=== PATIENT | male | born 1970 | race Caucasian/White ===

== ENCOUNTER 2018-07-16 20:12 | Inpatient (IN) | payer OTHER ==
--- NOTE | 2018-07-17 01:37 | HP ---
COWS - Scale Resting Pulse: 1= [place] 81-100 Sweatin=Flushed/Facial Moisture Restless Observation: 5= Unable to Sit Still Pupil Size: 0= Normal to Room Light Bone or Joint Aches: 4=Acute Joint/Muscle Pain Runny Nose/ Eye Tearin= Nasal Congestion GI Upset > 30mins: 1= Stomach Cramp Tremor Observation: 0= None Yawning Observation: 0= None Anxiety or Irritability: 2=Irritable/Anxious Goose Flesh Skin: 0=Smooth Skin COWS Score: 16 CIWA Score Nausea/Vomitin Muscle Tremors: None Anxiety: 4-Mod. Anxious/Guarded Agitation: 4-Moderately Restless Paroxysmal Sweats: 3 Orientation: 0-Oriented Tacttile Disturbances: 2-Mild Itch/Numbness/Burn Auditory Disturbances: 0-None Visual Disturbances: 3-Moderate Sensitivity Headache: 3-Moderate CIWA-Ar Total Score: 22 - Admission Criteria [facility]ASAS Guidelines: Admission for Medically Managed Detox: Requires at least one of the followin. CIWA greater than 12 2. Seizures within the past 24 hours 3. Delirium tremens within the past 24 hours 4. Hallucinations within the past 24 hours 5. Acute intervention needed for co occurring medical disorder 6. Acute intervention needed for co occurring psychiatric disorder 7. Severe withdrawal that cannot be handled at a lower level of care (continued vomiting, continued diarrhea, abnormal vital signs) requiring intravenous medication and/or fluids 8. Patient presents the following: CIWA greater than 12 Admission Criteria Met: Admission criteria met Admission [facility] Chief Complaint: c/o worsening withdrawal sx's. seeking detox txment. Allergies/Adverse Reactions: Allergies Allergy/AdvReac Type Severity Reaction Status Date / Time fish derived Allergy Verified 07/16/18 23:29 ibuprofen AdvReac Intermediate Rash Verified 07/16/18 23:29 History of Present Illness: 48 Y.O. MALE WITH HX/O ALCOHOLISM AND HEROIN ABUSE HERE FOR DETOX. CLIENT IS SELF REFERRED. HE IS KNOWN TO OUR OUTPATIENT PROGRAM. HE REPORTS DRINKING ALCOHOL DAILY AND HIS LAST USE OF HEROIN 3 DAYS AGO. UTOX + THC, IMELDA. CIWA 22. REPORTS LONGEST CLEAN TIME 11 YEARS, DENIES ANY RECENT CLEAN TIME. REPORTS HX/O SEIZURES R/T XANAX WITHDRAWAL. REPORTS HAS NOT TAKEN ANY XANAX IN MONTHS. DENIES SI/AVH. HX/O HI BUT PRESENTLY DENIES. Exam Limitations: No Limitations - Ebola screening Have you traveled outside of the country in the last 21 days: No Have you had contact with anyone from an Ebola affected area: No Do you have a fever: No - Review of Systems Constitutional: Chills, Loss of Appetite, Malaise, Night Sweats, Changes in sleep, Unintentional Wgt. Loss EENT: reports: Nose Congestion, Dental Problems (MISSING TEETH) Respiratory: reports: Other (HX/O ASTHMA/COPD) Cardiac: reports: No Symptoms Reported GI: reports: Constipated, Nausea, Poor Appetite, Vomiting, Abdominal cramping : reports: No Symptoms Reported Musculoskeletal: reports: Back Pain Integumentary: reports: Other (GENTIAL WART) Neuro: reports: Numbness, Other (SCIATICA) Endocrine: reports: No Symptoms Reported Hematology: reports: No Symptoms Reported Psychiatric: reports: Orientated x3, Anxious, Depressed Other Systems: Reviewed and Negative Patient History - Patient Medical History Hx Anemia: No Hx Asthma: Yes Hx Chronic Obstructive Pulmonary Disease (COPD): Yes Hx Cancer: No Hx Cardiac Disorders: No Hx Congestive Heart Failure: No Hx Hypertension: Yes Hx Hypercholesterolemia: No Hx Pacemaker: No HX Cerebrovascular Accident: No Hx Seizures: Yes Hx Dementia: No Hx Diabetes: No Hx Gastrointestinal Disorders: Yes (ACID REFLUX) Hx Liver Disease: No Hx Genitourinary Disorders: No Hx Sexually Transmitted Disorders: Yes (GENITAL WART) Hx Renal Disease (ESRD): No Hx Thyroid Disease: No Hx Human Immunodeficiency Virus (HIV): No Hx Hepatitis C: No Hx Depression: Yes Hx Suicide Attempt: No Hx Bipolar Disorder: Yes Hx Schizophrenia: No - Patient Surgical History Past Surgical History: No Anesthesia Reaction: No - PPD History Previous Implant?: Yes Documented Results: Negative w/o proof Implanted On Prior [facility] Admission?: Yes PPD to be Administered?: Yes - Smoking Cessation Smoking history: Current every day smoker Have you smoked in the past 12 months: Yes Aproximately how many cigarettes per day: 10 Hx Chewing Tobacco Use: No Initiated information on smoking cessation: Yes 'Breaking Loose' booklet given: 07/17/18 - Substance & Tx. History Hx Alcohol Use: Yes Hx Substance Use: Yes Substance Use Type: Alcohol - Substances abused Heroin Other (specify): sniff Frequency: Daily Amount used: 3 bags Age of first use: 8 Date of last use: 07/14/18 Alcohol Substance route: Oral Frequency: Daily Amount used: 2/5th Age of first use: 12 Date of last use: 07/14/18 Family Disease History - Family Disease History Family Disease History: Other: Son (CANNABIS), Daughter (CANNABIS) Admission Physical Exam [facility] - Vital Signs Vital Signs: Vital Signs - 24 hr 07/16/18 23:30 Pulse Rate 82 Respiratory 20 Rate Blood Pressure 137/79 - Physical General Appearance: Yes: Appropriately Dressed, Irritable, Anxious HEENTM: Yes: EOMI, Normocephalic, Normal Voice, RIC, Pharynx Normal, Other ( POOR DENTITION) Respiratory: Yes: Chest Non-Tender, Lungs Clear, Normal Breath Sounds, Decreased Breath Sounds, No Respiratory Distress Neck: Yes: No masses,lesions,Nodules, Supple, Trachea in good position Breast: Yes: Breast Exam Deferred Cardiology: Yes: Regular Rhythm, Regular Rate, S1, S2 Abdominal: Yes: Normal Bowel Sounds, Non Tender, Soft Genitourinary: Yes: Within Normal Limits Back: Yes: Normal Inspection Musculoskeletal: Yes: full range of Motion, Gait Steady Extremities: Yes: Normal Capillary Refill, Normal Range of Motion, Non-Tender Neurological: Yes: Fully Oriented, Alert Integumentary: Yes: Dry, Warm Lymphatic: Yes: Within Normal Limits - Diagnostic (1) Alcohol dependence with uncomplicated withdrawal Current Visit: Yes Status: Acute (2) COPD - Chronic obstructive lung disease Current Visit: Yes Status: Chronic (3) Degenerative disc disease Current Visit: Yes Status: Chronic (4) Low back pain Current Visit: Yes Status: Chronic (5) hypertension Current Visit: Yes Status: Chronic (6) Cannabis dependence Current Visit: Yes Status: Acute (7) Cocaine dependence Current Visit: Yes Status: Acute (8) Nicotine dependence Current Visit: No Status: Acute Cleared for Admission [facility] - Detox or Rehab [facility] Level of Care: Medically Managed Detox Regimen/Protocol: Librium Claeared for Rehab Admission: No Breathalyzer - Breathalyzer Breathalyzer: 0 Urine Drug Screen - Test Device Lot number: [id number] Expiration date: 03/15/20 - Control Is test valid?: Yes - Results Drug screen NEGATIVE: No Urine drug screen results: THC-Marijuana, IMELDA-Cocaine Inpatient Rehab Admission - Rehab Decision to Admit Inpatient rehab admission?: No
[2018-07-17] MEDS ORDERED: MAGNESIUM HYDROX 2400MG/30ML ORAL SUSPENSION 30 ML CUP PO PRN (01:44)
[2018-07-17] MEDS ORDERED: P-EPHED 60MG/TRIPROLIDI 2.5MG TABLET PO PRN (01:44)
[2018-07-17] MEDS ORDERED: MAGNESIUM CITRATE 300 ML BOTTLE PO PRN (01:44)
[2018-07-17] MEDS ORDERED: NICOTINE POLACRILEX 2 MG GUM BUC PRN (01:44)
[2018-07-17] MEDS ORDERED: chlordiazePOXIDE HCL 25 MG CAPSULE PO ONE (01:44)
[2018-07-17] MEDS ORDERED: BISMUTH SUBSALICYLATE 524 MG/30 ML UD PO PRN (01:44)
[2018-07-17] MEDS ORDERED: ONDANSETRON *ODT* 4 MG TABLET SL PRN (01:44)
[2018-07-17] MEDS ORDERED: MENTHOL/PHENOL 1 EACH UD MM PRN (01:44)
[2018-07-17] MEDS ORDERED: chlordiazePOXIDE HCL 25 MG CAPSULE PO PRN (01:44)
[2018-07-17] MEDS ORDERED: hydrOXYzine PAMOATE 25 MG CAPSULE (FP) PO PRN (01:44)
[2018-07-17] MEDS ORDERED: MELATONIN 5 MG TABLETS PO PRN (01:44)
[2018-07-17] MEDS ORDERED: ACETAMINOPHEN 325 MG TABLET (FP) PO PRN (01:44)
[2018-07-17] MEDS ORDERED: METHOCARBAMOL 500 MG TABLET PO PRN (01:44)
[2018-07-17] MEDS ORDERED: DICYCLOMINE HCL 10 MG CAPSULE PO PRN (01:44)
[2018-07-17] MEDS ORDERED: guaiFENesin 200 MG/10 ML 10 ML UNIT-DOSE CUPS PO PRN (01:44)
[2018-07-17] MEDS ORDERED: IBUPROFEN 400 MG TABLET (FP) PO PRN (01:44)
[2018-07-17] MEDS ORDERED: ALBUTEROL SO4 0.083% IH SOL 2.5 MG/3 ML VIAL.NEB. NEB PRN (01:56)
[2018-07-17] MEDS: ACETAMINOPHEN 325 MG TABLET (FP) PO PRN (03:14)
[2018-07-17] MEDS: chlordiazePOXIDE HCL 25 MG CAPSULE PO SCH ×4 (06:54→22:19)
--- NOTE | 2018-07-17 09:49 | EKG ---
Test Reason : Blood Pressure : / mmHG Vent. Rate : 069 BPM Atrial Rate : 069 BPM P-R Int : 162 ms QRS Dur : 112 ms QT Int : 422 ms P-R-T Axes : 064 068 052 degrees QTc Int : 452 ms NORMAL SINUS RHYTHM NORMAL ECG NO PREVIOUS ECGS AVAILABLE Confirmed by KRISTIN SANCHEZ, CHERELLE ([id number]) on 07/17/2018 9:49:41 AM Referred By: LAMONTE Confirmed By:CHERELLE FOSTER MD
[2018-07-17] MEDS: PRENATAL VITAMINS W/ FOLIC ACID TABLET (FP) PO SCH (10:22)
[2018-07-17] MEDS: NICOTINE 21 MG/24 HOURS TOPICAL PATCH TD SCH (10:22)
[2018-07-17] MEDS ORDERED: CYCLOBENZAPRINE HCL 10 MG TABLET (FP) PO PRN (10:27)
[2018-07-17] MEDS: GABAPENTIN 100 MG CAPSULE (FP) PO SCH ×2 (11:52→22:19)
[2018-07-17] MEDS: PANTOPRAZOLE 20 MG TABLET (FP) PO SCH (11:52)
[2018-07-17] MEDS: TIOTROPIUM BROMIDE 2.5 MCG (SPIRIVA) RESPIMAT INHALER IH SCH (11:53)
[2018-07-17 12:30] LABS: HEMATOCRIT 40.9 % (35.4-49); HEMOGLOBIN 13.8 GM/dL (11.7-16.9); MCH 29.7 pg (25.7-33.7); MCHC 33.7 g/dl (32.0-35.9); MEAN CELL VOLUME 88.1 fl (80-96); MEAN PLT VOLUME 8.6 fl (7.5-11.1); PLATELET COUNT 257 K/MM3 (134-434); RBC 4.64 M/mm3 (4.00-5.60); RDW 14.4 % (11.9-15.9); WHITE BLOOD COUNT 4.9 K/mm3 (4.0-10.0)
[2018-07-17 12:45] LABS: ALBUMIN 3.6 g/dl (3.4-5.0); ALK PHOS 65 U/L (45-117); ANION GAP 7 MMOL/L (8-16); BILIRUBIN,TOTAL 0.6 mg/dL (0.2-1); BLOOD UREA NITROGEN 17 mg/dL (7-18); CHLORIDE 108 mmol/L (98-107); CO2 29 mmol/L (21-32); CREATININE 0.9 mg/dL (0.55-1.3); GLUCOSE,RANDOM 92 mg/dL (74-106); POTASSIUM 3.7 mmol/L (3.5-5.1); SGOT/AST 15 U/L (15-37); SGPT/ALT 20 U/L (13-61); SODIUM 144 mmol/L (136-145)
--- NOTE | 2018-07-17 14:37 | CONSULT ---
[facility] Psychiatric Consult - Data Date of interview: 07/17/18 Admission source: [facility] Identifying data: First admission to [facility] for this 48 y/o male self-referred for detoxification (heroin, alcohol, cocaine, cannabis, nicotine) . Examined at [address] [place] [address]. 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 Substance Abuse History: Confirmed by the patient in this interview. Details in current [facility] report as follows : Smoking history: Current every day smoker. Have you smoked in the past 12 months: Yes. Aproximately how many cigarettes per day: 10. Hx Chewing Tobacco Use: No. Initiated information on smoking cessation: Yes. 'Breaking Loose' booklet given: 07/17/18. - Substance & Tx. History. Hx Alcohol Use: Yes. Hx Substance Use: Yes. Substance Use Type: Alcohol. - Substances abused. Heroin. Other (specify): sniff. Frequency: Daily. Amount used: 3 bags. Age of first use: 8. Date of last use: 07/14/18. Alcohol. Substance route: Oral. Frequency: Daily. Amount used: 2/5th. Age of first use: 12. Date of last use: 07/14/18 Medical History: Remarkable for bronchial asthma, COPD, genital warts, GERD, withdrawal-related seizures, sciatica, chronic lumbar pain and degenerative disc disease. Psychiatric History: No reported history of psychiatric hospitalizations. Patient has been diagnosed with Bipolar Disorder. Treated with a regimen of seroquel, valproate, xanax and aripriprazole (recently added to regimen). Mr Bearden sees a psychiatrist at the [facility]. He is also known to [facility] outpatient program. Denies history of suicide attempts. Physical/Sexual Abuse/Trauma History: History of multiple incarcerations. Additional Comment: Urine drug screen results: THC-Marijuana, IMELDA-Cocaine. Noted. Mental Status Exam - Mental Status Exam Alert and Oriented to: Time, Place, Person Cognitive Function: Good Patient Appearance: Well Groomed (covered with tattoos : neck, extremities) Mood: Nervous, Withdrawn, Anxious Affect: Mood Congruent, Constricted Patient Behavior: Fatigued, Talkative, Cooperative Speech Pattern: Clear, Appropriate Voice Loudness: Normal Thought Process: Goal Oriented Thought Disorder: Not Present, Grandiose Hallucinations: Denies Suicidal Ideation: Denies Homicidal Ideation: Denies Insight/Judgement: Poor Sleep: Poorly, Difficulty falling asleep Appetite: Good Muscle strength/Tone: Normal Gait/Station: Normal Psychiatric Findings - Problem List ([place] 1, 2,3) (1) Alcohol dependence with uncomplicated withdrawal Current Visit: Yes Status: Acute (2) Opioid dependence Current Visit: Yes Status: Chronic (3) Cannabis dependence Current Visit: Yes Status: Chronic (4) Cocaine dependence Current Visit: Yes Status: Chronic (5) Nicotine dependence Current Visit: Yes Status: Chronic (6) Substance induced mood disorder Current Visit: Yes Status: Chronic (7) Bipolar disorder Current Visit: Yes Status: Chronic Comment: On medications. (8) Insomnia Current Visit: Yes Status: Chronic - Initial Treatment Plan Initial Treatment Plan: Psychoeducation. Sleep hygiene. Detoxification. Support. Motivational rounds. Patient wants to resume valproate and seroquel. Not aripriprazole (recently prescribed but not yet taken). Ordered : seroquel 200 mg po hs + depakote 250 mg po bid. Sied effects/benefits of both drugs are discussed with the patient. Mr Bearden is agreeable with this plan of care. Consent (verbal) granted to MD. Nieves.
[2018-07-17 14:46] LABS: PH,URINE 6.5 (5.0-8.0); URINE APPEARANCE CLEAR; URINE BILIRUBIN NEGATIVE (NEGATIVE); URINE COLOR YELLOW; URINE GLUCOSE (UA) NEGATIVE (NEGATIVE); URINE KETONE NEGATIVE (NEGATIVE); URINE LEUK ESTERASE NEGATIVE (NEGATIVE); URINE NITRITE NEGATIVE (NEGATIVE); URINE PROTEIN NEGATIVE (NEGATIVE); URINE UROBILINOGEN 0.2 mg/dL (0.2-1.0)
--- NOTE | 2018-07-17 16:25 | PN ---
S CIWA - CIWA Score Nausea/Vomitin Muscle Tremors: 3 Anxiety: 2 Agitation: 0-Normal Activity Paroxysmal Sweats: 3 Orientation: 0-Oriented Tacttile Disturbances: 2-Mild Itch/Numbness/Burn Auditory Disturbances: 0-None Visual Disturbances: 3-Moderate Sensitivity Headache: 3-Moderate CIWA-Ar Total Score: 19 BHS COWS - Scale Resting Pulse: 1= [place] 81-100 Sweatin= Chills/Flushing Restless Observation: 0= Sits Still Pupil Size: 0= Normal to Room Light Bone or Joint Aches: 2= Severe Diffuse Aches Runny Nose/ Eye Tearin= None GI Upset > 30mins: 0= None Tremor Observation of Outstretched Hands: 2= Slight Tremor Visible Yawning Observation: 1= 1-2x During Session Anxiety or Irritability: 2=Irritable/Anxious Goose Flesh Skin: 3=Piloerection COWS Score: 12 BHS Progress Note (SOAP) Subjective: Nausea, Tremors, Sweating, H/A, Body Aches, Hot / Cold Sensations, Poor Appetite , Constipation. Objective: PATIENT A & O X 3, OBSERVED AMBULATING ON UNIT. IN NO ACUTE DISTRESS. 07/17/18 16:22 Vital Signs Temperature 98.6 F 07/17/18 14:30 Pulse Rate 85 07/17/18 14:30 Respiratory Rate 18 07/17/18 14:30 Blood Pressure 122/83 07/17/18 14:30 O2 Sat by Pulse Oximetry (%) Laboratory Tests 07/17/18 07/17/18 07/17/18 07:00 07:00 10:25 WBC 4.9 RBC 4.64 Hgb 13.8 Hct 40.9 MCV 88.1 MCH 29.7 MCHC 33.7 RDW 14.4 Plt Count 257 MPV 8.6 Sodium 144 Potassium 3.7 Chloride 108 H Carbon Dioxide 29 Anion Gap 7 L BUN 17 Creatinine 0.9 Creat Clearance w eGFR 89.69 Random Glucose 92 Calcium 8.0 L Total Bilirubin 0.6 AST 15 ALT 20 Alkaline Phosphatase 65 Total Protein 6.0 L Albumin 3.6 Urine Color Yellow Urine Appearance Clear Urine pH 6.5 Ur Specific [place] 1.023 Urine Protein Negative Urine Glucose (UA) Negative Urine Ketones Negative Urine Blood Negative Urine Nitrite Negative Urine Bilirubin Negative Urine Urobilinogen 0.2 Ur Leukocyte Esterase Negative LABS NOTED. Assessment: 07/17/18 16:22 WITHDRAWAL SYMPTOMS. HYPOCALCEMIA. 07/17/18 16:23 Plan: CONTINUE DETOX. INCREASE DAILY PO FLUID INTAKE. OSCAL, 500 MG PO BID FOR HYPOCALCEMIA. PATIENT REPORTS HISTORY OF TAKING COZAAR, 50 MG PO DAILY FOR TREATMENT OF HTN ON OUTPATIENT BASIS. MEDICATION HELD FOR TIME BEING DUE TO NORMAL RANGE TO BELOW -NORMAL RANGE BP READINGS SINCE DETOX ADMISSION THUS FAR. WILL CONTINUE TO MONITOR.
[2018-07-17] MEDS: MAG HYDROX/AL HYDROX/SIMETH 30 ML UNIT-DOSE CUP PO PRN (20:56)
[2018-07-17] MEDS: CALCIUM 500MG/VIT-D 200 UNITS COMBO TABLET (FP) PO SCH (22:19)
[2018-07-17] MEDS: QUEtiapine FUMARATE 200 MG TABLET PO SCH (22:19)
[2018-07-17] MEDS: THIAMINE HCL 100 MG TABLET (FP) PO SCH (22:19)
[2018-07-17] MEDS: DIVALPROEX SODIUM 250 MG TABLET E.C. PO SCH (22:19)
[2018-07-18] MEDS: chlordiazePOXIDE HCL 25 MG CAPSULE PO SCH ×4 (06:10→22:01)
[2018-07-18] MEDS: PRENATAL VITAMINS W/ FOLIC ACID TABLET (FP) PO SCH (09:56)
[2018-07-18] MEDS: GABAPENTIN 100 MG CAPSULE (FP) PO SCH ×2 (09:56→22:00)
[2018-07-18] MEDS: CALCIUM 500MG/VIT-D 200 UNITS COMBO TABLET (FP) PO SCH ×2 (09:56→22:03)
[2018-07-18] MEDS: PANTOPRAZOLE 20 MG TABLET (FP) PO SCH (09:56)
[2018-07-18] MEDS: DIVALPROEX SODIUM 250 MG TABLET E.C. PO SCH ×2 (09:56→22:00)
[2018-07-18] MEDS: TIOTROPIUM BROMIDE 2.5 MCG (SPIRIVA) RESPIMAT INHALER IH SCH (09:57)
[2018-07-18] MEDS: NICOTINE 21 MG/24 HOURS TOPICAL PATCH TD SCH (09:58)
[2018-07-18] MEDS: ALBUTEROL SO4 8 GM HFA INHALER IH PRN ×2 (14:54→22:43)
--- NOTE | 2018-07-18 15:39 | PN ---
S CIWA - CIWA Score Nausea/Vomitin Muscle Tremors: None Anxiety: 3 Agitation: 3 Paroxysmal Sweats: 2 Orientation: 0-Oriented Tacttile Disturbances: 2-Mild Itch/Numbness/Burn Auditory Disturbances: 0-None Visual Disturbances: 0-None Headache: 2-Mild CIWA-Ar Total Score: 14 BHS COWS - Scale Resting Pulse: 1= [place] 81-100 Sweatin= Chills/Flushing Restless Observation: 1= Difficult to Sit Still Pupil Size: 0= Normal to Room Light Bone or Joint Aches: 2= Severe Diffuse Aches Runny Nose/ Eye Tearin= None GI Upset > 30mins: 2= Nausea/Diarrhea Tremor Observation of Outstretched Hands: 2= Slight Tremor Visible Yawning Observation: 1= 1-2x During Session Anxiety or Irritability: 2=Irritable/Anxious Goose Flesh Skin: 0=Smooth Skin COWS Score: 12 BHS Progress Note (SOAP) Subjective: Nausea (Subsiding), Tremors, Sweating, Body Aches, H/A. Objective: PATIENT A & O X 3, OBSERVED AMBULATING ON UNIT. IN NO ACUTE DISTRESS. 07/18/18 15:41 Vital Signs Temperature 96.9 F L 07/18/18 14:01 Pulse Rate 87 07/18/18 14:01 Respiratory Rate 18 07/18/18 14:01 Blood Pressure 136/87 07/18/18 14:01 O2 Sat by Pulse Oximetry (%) Laboratory Tests 07/17/18 07/17/18 07/17/18 07:00 07:00 07:00 WBC 4.9 RBC 4.64 Hgb 13.8 Hct 40.9 MCV 88.1 MCH 29.7 MCHC 33.7 RDW 14.4 Plt Count 257 MPV 8.6 Sodium 144 Potassium 3.7 Chloride 108 H Carbon Dioxide 29 Anion Gap 7 L BUN 17 Creatinine 0.9 Creat Clearance w eGFR 89.69 Random Glucose 92 Calcium 8.0 L Total Bilirubin 0.6 AST 15 ALT 20 Alkaline Phosphatase 65 Total Protein 6.0 L Albumin 3.6 Urine Color Urine Appearance Urine pH Ur Specific [place] Urine Protein Urine Glucose (UA) Urine Ketones Urine Blood Urine Nitrite Urine Bilirubin Urine Urobilinogen Ur Leukocyte Esterase RPR Titer Nonreactive 07/17/18 10:25 WBC RBC Hgb Hct MCV MCH MCHC RDW Plt Count MPV Sodium Potassium Chloride Carbon Dioxide Anion Gap BUN Creatinine Creat Clearance w eGFR Random Glucose Calcium Total Bilirubin AST ALT Alkaline Phosphatase Total Protein Albumin Urine Color Yellow Urine Appearance Clear Urine pH 6.5 Ur Specific [place] 1.023 Urine Protein Negative Urine Glucose (UA) Negative Urine Ketones Negative Urine Blood Negative Urine Nitrite Negative Urine Bilirubin Negative Urine Urobilinogen 0.2 Ur Leukocyte Esterase Negative RPR Titer LABS NOTED. Assessment: 07/18/18 15:41 WITHDRAWAL SYMPTOMS. HYPOCALCEMIA. 07/18/18 15:42 Plan: CONTINUE DETOX. CONTINUE OSCAL. PRN ZOFRAN SL FOR NAUSEA.
[2018-07-18] MEDS: ACETAMINOPHEN 325 MG TABLET (FP) PO PRN (18:03)
[2018-07-18] MEDS: MAG HYDROX/AL HYDROX/SIMETH 30 ML UNIT-DOSE CUP PO PRN (18:15)
[2018-07-18] MEDS: QUEtiapine FUMARATE 200 MG TABLET PO SCH (22:00)
[2018-07-18] MEDS: THIAMINE HCL 100 MG TABLET (FP) PO SCH (22:01)
[2018-07-19] MEDS ORDERED: chlordiazePOXIDE HCL 10 MG CAPSULE PO PRN (05:00)
[2018-07-19 06:15] VITALS: BP 114/64; PULSE 55; TEMP 97
[2018-07-19] MEDS: chlordiazePOXIDE HCL 10 MG CAPSULE PO SCH ×2 (06:17→10:44)
[2018-07-19] MEDS: NICOTINE 21 MG/24 HOURS TOPICAL PATCH TD SCH (10:43)
[2018-07-19] MEDS: GABAPENTIN 100 MG CAPSULE (FP) PO SCH (10:43)
[2018-07-19] MEDS: PANTOPRAZOLE 20 MG TABLET (FP) PO SCH (10:43)
[2018-07-19] MEDS: PRENATAL VITAMINS W/ FOLIC ACID TABLET (FP) PO SCH (10:43)
[2018-07-19] MEDS: CALCIUM 500MG/VIT-D 200 UNITS COMBO TABLET (FP) PO SCH (10:43)
[2018-07-19] MEDS: DIVALPROEX SODIUM 250 MG TABLET E.C. PO SCH (10:43)
[2018-07-19] MEDS: TIOTROPIUM BROMIDE 2.5 MCG (SPIRIVA) RESPIMAT INHALER IH SCH (10:44)
--- NOTE | 2018-07-19 17:36 | PN ---
BHS Progress Note (SOAP) Subjective: Anxious, Body Aches, Interrupted Sleep. Objective: PATIENT A & O X 3, OBSERVED AMBULATING ON UNIT. IN NO ACUTE DISTRESS. 07/19/18 17:35 Vital Signs Temperature 97 F L 07/19/18 06:14 Pulse Rate 55 L 07/19/18 06:14 Respiratory Rate 18 07/19/18 06:14 Blood Pressure 114/64 07/19/18 06:14 O2 Sat by Pulse Oximetry (%) Laboratory Tests 07/17/18 07/17/18 07/17/18 07:00 07:00 07:00 WBC 4.9 RBC 4.64 Hgb 13.8 Hct 40.9 MCV 88.1 MCH 29.7 MCHC 33.7 RDW 14.4 Plt Count 257 MPV 8.6 Sodium 144 Potassium 3.7 Chloride 108 H Carbon Dioxide 29 Anion Gap 7 L BUN 17 Creatinine 0.9 Creat Clearance w eGFR 89.69 Random Glucose 92 Calcium 8.0 L Total Bilirubin 0.6 AST 15 ALT 20 Alkaline Phosphatase 65 Total Protein 6.0 L Albumin 3.6 Urine Color Urine Appearance Urine pH Ur Specific [place] Urine Protein Urine Glucose (UA) Urine Ketones Urine Blood Urine Nitrite Urine Bilirubin Urine Urobilinogen Ur Leukocyte Esterase RPR Titer Nonreactive 07/17/18 10:25 WBC RBC Hgb Hct MCV MCH MCHC RDW Plt Count MPV Sodium Potassium Chloride Carbon Dioxide Anion Gap BUN Creatinine Creat Clearance w eGFR Random Glucose Calcium Total Bilirubin AST ALT Alkaline Phosphatase Total Protein Albumin Urine Color Yellow Urine Appearance Clear Urine pH 6.5 Ur Specific [place] 1.023 Urine Protein Negative Urine Glucose (UA) Negative Urine Ketones Negative Urine Blood Negative Urine Nitrite Negative Urine Bilirubin Negative Urine Urobilinogen 0.2 Ur Leukocyte Esterase Negative RPR Titer LABS NOTED. Assessment: 07/19/18 17:36 WITHDRAWAL SYMPTOMS. Plan: CONTINUE DETOX.
--- NOTE | 2018-07-19 17:39 | DS ---
[facility] Detox Discharge Summary Admission Date: 07/17/18 Discharge Date: 07/19/18 - History Present History: Alcohol Dependence, Cannabis Dependence, Cocaine Dependence Additional Comments: PATIENT DOES NOT WISH TO REMAIN TO COMPLETE DETOX REGIMEN. RISKS OF LEAVING DETOX UNIT AGAINST MEDICAL ADVICE AND PRIOR TO COMPLETION OF DETOX REGIMEN EXPLAINED TO PATIENT. PATIENT ADVISED TO GO IMMEDIATELY TO NEAREST ER SHOULD ANY INTOLERABLE WITHDRAWAL / DETOX SYMPTOMS DEVELOP AT ANY TIME. PATIENT VERBALIZED UNDERSTANDING OF ALL INFORMATION / RECOMMENDATIONS PRESENTED TO HIM PRIOR TO DEPARTURE FROM DETOX UNIT. PATIENT DECLINED OFFER OF MEDICATION PRESCRIPTION FOR HOME MEDICATION AT TIME OF DISCHARGE FROM DETOX, NOTING THAT HE CURRENTLY HAS ADEQUATE SUPPLIES OF ALL PRESCRIBED HOME MEDICATIONS AT HOME. PATIENT LEFT DETOX UNIT IN STABLE MEDICAL CONDITION. Pertinent Past History: Asthma, C.O.P.D., HTN, History Of Seizures, History of Acid Reflux, Depression, Bipolar Disorder, Nicotine Dependence, Hypocalcemia, History Of Degenerative Disc Disease. - Physical Exam Results Vital Signs: Vital Signs Temperature 97 F L 07/19/18 06:14 Pulse Rate 55 L 07/19/18 06:14 Respiratory Rate 18 07/19/18 06:14 Blood Pressure 114/64 07/19/18 06:14 O2 Sat by Pulse Oximetry (%) Pertinent Admission Physical Exam Findings: WITHDRAWAL SYMPTOMS. Laboratory Tests 07/17/18 07/17/18 07/17/18 07:00 07:00 07:00 WBC 4.9 RBC 4.64 Hgb 13.8 Hct 40.9 MCV 88.1 MCH 29.7 MCHC 33.7 RDW 14.4 Plt Count 257 MPV 8.6 Sodium 144 Potassium 3.7 Chloride 108 H Carbon Dioxide 29 Anion Gap 7 L BUN 17 Creatinine 0.9 Creat Clearance w eGFR 89.69 Random Glucose 92 Calcium 8.0 L Total Bilirubin 0.6 AST 15 ALT 20 Alkaline Phosphatase 65 Total Protein 6.0 L Albumin 3.6 Urine Color Urine Appearance Urine pH Ur Specific [place] Urine Protein Urine Glucose (UA) Urine Ketones Urine Blood Urine Nitrite Urine Bilirubin Urine Urobilinogen Ur Leukocyte Esterase RPR Titer Nonreactive 07/17/18 10:25 WBC RBC Hgb Hct MCV MCH MCHC RDW Plt Count MPV Sodium Potassium Chloride Carbon Dioxide Anion Gap BUN Creatinine Creat Clearance w eGFR Random Glucose Calcium Total Bilirubin AST ALT Alkaline Phosphatase Total Protein Albumin Urine Color Yellow Urine Appearance Clear Urine pH 6.5 Ur Specific [place] 1.023 Urine Protein Negative Urine Glucose (UA) Negative Urine Ketones Negative Urine Blood Negative Urine Nitrite Negative Urine Bilirubin Negative Urine Urobilinogen 0.2 Ur Leukocyte Esterase Negative RPR Titer LABS NOTED. - Treatment Hospital Course: Detox Protocol Followed, Detoxed Safely - Medication Discharge Medications: Ambulatory Orders Albuterol Sulfate Inhaler - [Ventolin Hfa Inhaler -] 2 inh PO Q6H 07/17/18 Aripiprazole [Abilify] 5 mg PO HS 07/17/18 Cyclobenzaprine HCl [Flexeril -] 10 mg PO TID 07/17/18 Gabapentin 100 mg PO BID 07/17/18 Losartan Potassium [Cozaar -] 50 mg PO DAILY 07/17/18 Multivit,Calc,Mins/Iron/Folic [Therapeutic-M Tablet] 1 each PO DAILY 07/17/18 Omeprazole 20 mg PO DAILY 07/17/18 Tiotropium [place] [Spiriva Respimat] 2 gm IH DAILY 07/17/18 - Diagnosis (1) Alcohol dependence with uncomplicated withdrawal Status: Acute (2) Bipolar disorder Status: Chronic Qualifiers: Active/Remission status: remission status unspecified Qualified Code(s): F31.9 - Bipolar disorder, unspecified (3) COPD - Chronic obstructive lung disease Status: Chronic (4) Cocaine dependence Status: Chronic Qualifiers: Substance use status: uncomplicated Qualified Code(s): F14.20 - Cocaine dependence, uncomplicated (5) Degenerative disc disease Status: Chronic (6) Insomnia Status: Chronic Qualifiers: Insomnia type: unspecified Qualified Code(s): G47.00 - Insomnia, unspecified (7) Low back pain Status: Chronic (8) Nicotine dependence Status: Chronic Qualifiers: Nicotine product type: cigarettes Substance use status: uncomplicated Qualified Code(s): F17.210 - Nicotine dependence, cigarettes, uncomplicated (9) Substance induced mood disorder Status: Chronic (10) hypertension Status: Chronic (11) Cannabis dependence Status: Chronic - AMA Did Patient Leave Against Medical Advice: Yes (PATIENT DID NOT WISH TO REMAIN TO COMPLETE DETOX REGIMEN.)
[2018-07-20] MEDS ORDERED: chlordiazePOXIDE HCL 10 MG CAPSULE PO SCH (05:00)
== END 2018-07-19 09:19 | disposition home or self-care (01) | DRG 773 ==
LOC: YASAS 20:12 → Y3N 07-17 01:32
PROVIDERS: ADMIT Surgery; ATTEND Surgery
PROC: HZ2ZZZZ Detoxification Services for Substance Abuse Treatment (ICD-10-PCS; principal; 2018-07-17)
DX: F10.230 Alcohol dependence with withdrawal, uncomplicated (principal); F11.20 Opioid dependence, uncomplicated; F14.20 Cocaine dependence, uncomplicated; F12.20 Cannabis dependence, uncomplicated; F17.210 Nicotine dependence, cigarettes, uncomplicated; F31.9 Bipolar disorder, unspecified; F19.24 Other psychoactive substance dependence with psychoactive substance-induced mood disorder; I10 Essential (primary) hypertension; J44.9 Chronic obstructive pulmonary disease, unspecified; J45.998 Other asthma; K21.9 Gastro-esophageal reflux disease without esophagitis; E83.51 Hypocalcemia; M51.37 Other intervertebral disc degeneration, lumbosacral region; G47.00 Insomnia, unspecified; M54.5 Low back pain; G89.29 Other chronic pain
CPT/HCPCS: 36415; 80053; 81003; 85027; 86593; 93005; 93010

== ENCOUNTER → 2018-12-11 | Outpatient (CLI) | payer OTHER | LOC: YHH 13:48 ==